=== PATIENT | male | born 1945 | race Caucasian/White ===

== ENCOUNTER 2017-12-18 07:40 | Day surgery (SDC) | payer MEDICARE, OTHER ==
[2017-12-18] MEDS ORDERED: HEPARIN 1000 UNITS/ML 10 ML INJ (09:32)
[2017-12-18] MEDS ORDERED: LIDOCAINE 1% (MPF) 30 ML INJ (09:32)
[2017-12-18 09:34] LABS: ADD MAN DIFF? NO
[2017-12-18 09:36] LABS: ABNORMAL IP MESSAGE 1; BASOPHILS % 0.5 % (0.0-2.0); EOSINOPHILS # 0.2 10^3/ul (0.0-0.5); EOSINOPHILS % 2.7 % (0.0-7.0); HEMATOCRIT 34.4 % (42.0-52.0); HEMOGLOBIN 10.8 g/dl (14.0-18.0); LYMPHOCYTES # 0.5 10^3/ul (0.8-2.9); LYMPHOCYTES % 8.4 % (15.0-51.0); MEAN CORPUSCULAR HEMOGLOBIN 31.3 pg (29.0-33.0); MEAN CORPUSCULAR HGB CONC 31.4 g/dl (32.0-37.0); MEAN CORPUSCULAR VOLUME 99.7 fl (82.0-101.0); MEAN PLATELET VOLUME 11.1 fl (7.4-10.4); MONOCYTE # 0.4 10^3/ul (0.3-0.9); MONOCYTES % 6.9 % (0.0-11.0); PLATELET COUNT 174 10^3/UL (140-415); POSITIVE DIFF @See below; RED BLOOD COUNT 3.45 10^6/ul (4.70-6.10)
[2017-12-18 09:36] LABS: WHITE BLOOD COUNT 6.2 10^3/ul (4.8-10.8)
[2017-12-18 09:57] LABS: ALANINE AMINOTRANSFERASE 22 IU/L (13-69); ALBUMIN 4.1 g/dl (3.3-4.9); ALBUMIN/GLOBULIN RATIO 1.36; ALKALINE PHOSPHATASE 198 IU/L (42-121); ANION GAP 19 (8-16); ASPARTATE AMINO TRANSFERASE 15 IU/L (15-46); BILIRUBIN,INDIRECT 0.5 mg/dl (0-1.1); BILIRUBIN,TOTAL 0.5 mg/dl (0.2-1.3); CARBON DIOXIDE 38 mmol/L (21-31); CHLORIDE 97 mmol/L (97-110); GLUCOSE 108 mg/dl (70-220); TOTAL PROTEIN 7.1 g/dl (6.1-8.1)
[2017-12-18 10:02] LABS: INR 1.06; PROTIME 13.9 Sec (11.9-14.9); PT RATIO 1.1
[2017-12-18 10:03] LABS: PARTIAL THROMBOPLASTIN TIME 33.1 Sec (25.0-35.0)
[2017-12-18 10:04] LABS: BLOOD UREA NITROGEN 78 mg/dl (7-20); CALCIUM 8.1 mg/dl (8.4-10.2); CREATININE 10.29 mg/dl (0.61-1.24); POTASSIUM 5.7 mmol/L (3.5-5.1); SODIUM 148 mmol/L (135-144)
== END 2017-12-18 10:35 | disposition home or self-care (01) ==
LOC: SDS 07:40
DX: T82.590A Other mechanical complication of surgically created arteriovenous fistula, initial encounter (principal); Y84.1 Kidney dialysis as the cause of abnormal reaction of the patient, or of later complication, without mention of misadventure at the time of the procedure; I12.0 Hypertensive chronic kidney disease with stage 5 chronic kidney disease or end stage renal disease; N18.6 End stage renal disease; Z53.9 Procedure and treatment not carried out, unspecified reason; E11.9 Type 2 diabetes mellitus without complications
CPT/HCPCS: 71045; 80053; 82962; 85025; 85610; 85730; 93005

== ENCOUNTER 2018-03-15 19:11 | Emergency (ER) | payer MEDICARE, OTHER ==
[2018-03-15 19:55] LABS: ADD MAN DIFF? NO
[2018-03-15 19:58] LABS: WHITE BLOOD COUNT 6.9 10^3/ul (4.8-10.8)
[2018-03-15 19:58] LABS: ABNORMAL IP MESSAGE 1; BASOPHILS % 0.4 % (0.0-2.0); EOSINOPHILS # 0.1 10^3/ul (0.0-0.5); EOSINOPHILS % 1.7 % (0.0-7.0); HEMATOCRIT 30.2 % (42.0-52.0); HEMOGLOBIN 9.7 g/dl (14.0-18.0); LYMPHOCYTES # 0.5 10^3/ul (0.8-2.9); LYMPHOCYTES % 7.9 % (15.0-51.0); MEAN CORPUSCULAR HEMOGLOBIN 30.9 pg (29.0-33.0); MEAN CORPUSCULAR HGB CONC 32.1 g/dl (32.0-37.0); MEAN CORPUSCULAR VOLUME 96.2 fl (82.0-101.0); MEAN PLATELET VOLUME 10.7 fl (7.4-10.4); MONOCYTE # 0.5 10^3/ul (0.3-0.9); MONOCYTES % 7.7 % (0.0-11.0); NEUTROPHIL # 5.6 10^3/ul (1.6-7.5); NEUTROPHILS % 81.9 % (39.0-77.0); PLATELET COUNT 203 10^3/UL (140-415); POSITIVE DIFF @See below; RED BLOOD COUNT 3.14 10^6/ul (4.70-6.10); RED CELL DISTRIBUTION WIDTH 14.8 % (11.5-14.5)
[2018-03-15] MEDS: ONDANSETRON (ODT) 4 MG TAB ODT (20:05)
[2018-03-15] MEDS: HYDROCODONE/APAP (10/325) TAB PO (20:06)
[2018-03-15 20:18] LABS: INR 1.02; PROTIME 13.5 Sec (11.9-14.9); PT RATIO 1.1
[2018-03-15 20:19] LABS: PARTIAL THROMBOPLASTIN TIME 33.9 Sec (25.0-35.0)
[2018-03-15 20:26] LABS: ANION GAP 21 (8-16); BLOOD UREA NITROGEN 53 mg/dl (7-20); CARBON DIOXIDE 31 mmol/L (21-31); CHLORIDE 92 mmol/L (97-110); CREATININE 8.81 mg/dl (0.61-1.24); GLUCOSE 240 mg/dl (70-220); POTASSIUM 4.8 mmol/L (3.5-5.1); SODIUM 139 mmol/L (135-144)
== END 2018-03-15 22:15 | disposition home or self-care (01) ==
LOC: E/R 19:11
DX: S00.01XA Abrasion of scalp, initial encounter (principal); I12.9 Hypertensive chronic kidney disease with stage 1 through stage 4 chronic kidney disease, or unspecified chronic kidney disease; N18.9 Chronic kidney disease, unspecified; E11.22 Type 2 diabetes mellitus with diabetic chronic kidney disease; R51 Headache; W19.XXXA Unspecified fall, initial encounter; Y92.9 Unspecified place or not applicable; Z87.891 Personal history of nicotine dependence; Z79.4 Long term (current) use of insulin; Z99.2 Dependence on renal dialysis
CPT/HCPCS: 70450; 71045; 72125; 80048; 85025; 85610; 85730; 93005; 99285-25

== ENCOUNTER 2018-06-21 04:35 | Observation (INO) | payer MEDICARE, OTHER ==
[2018-06-21 05:11] LABS: ADD MAN DIFF? NO
[2018-06-21 05:18] LABS: WHITE BLOOD COUNT 7.3 10^3/ul (4.8-10.8)
[2018-06-21 05:18] LABS: BASOPHILS % 0.4 % (0.0-2.0); EOSINOPHILS # 0.2 10^3/ul (0.0-0.5); EOSINOPHILS % 2.5 % (0.0-7.0); HEMATOCRIT 33.4 % (42.0-52.0); HEMOGLOBIN 10.7 g/dl (14.0-18.0); LYMPHOCYTES # 0.8 10^3/ul (0.8-2.9); LYMPHOCYTES % 10.4 % (15.0-51.0); MEAN CORPUSCULAR HEMOGLOBIN 32.6 pg (29.0-33.0); MEAN CORPUSCULAR VOLUME 101.8 fl (82.0-101.0); MEAN PLATELET VOLUME 10.3 fl (7.4-10.4); MONOCYTE # 0.6 10^3/ul (0.3-0.9); MONOCYTES % 8.7 % (0.0-11.0); NEUTROPHIL # 5.7 10^3/ul (1.6-7.5); NEUTROPHILS % 77.7 % (39.0-77.0); PLATELET COUNT 198 10^3/UL (140-415); RED BLOOD COUNT 3.28 10^6/ul (4.70-6.10); RED CELL DISTRIBUTION WIDTH 14.5 % (11.5-14.5)
[2018-06-21 05:43] LABS: ALANINE AMINOTRANSFERASE 13 IU/L (13-69); ALBUMIN 4.8 g/dl (3.3-4.9); ALKALINE PHOSPHATASE 207 IU/L (42-121); ANION GAP 17 (5-13); ASPARTATE AMINO TRANSFERASE 14 IU/L (15-46); BILIRUBIN,INDIRECT 0.3 mg/dl (0-1.1); BILIRUBIN,TOTAL 0.3 mg/dl (0.2-1.3); BLOOD UREA NITROGEN 89 mg/dl (7-20); CALCIUM 9.2 mg/dl (8.4-10.2); CARBON DIOXIDE 32 mmol/L (21-31); CHLORIDE 95 mmol/L (97-110); CREATININE 12.62 mg/dl (0.61-1.24); Estimated GFR 4 mL/min (>60); GLUCOSE 87 mg/dl (70-220); LIPASE 529 U/L (23-300); POTASSIUM 4.9 mmol/L (3.5-5.1); SODIUM 144 mmol/L (135-144); TOTAL PROTEIN 7.8 g/dl (6.1-8.1)
[2018-06-21] MEDS: DIPHENHYDRAMINE 25 MG CAP PO (05:55)
[2018-06-21 05:59] LABS: ADD UMIC YES; UR ASCORBIC ACID NEGATIVE (NEGATIVE); UR BILIRUBIN (Dip) NEGATIVE (NEGATIVE); UR BLOOD (Dip) NEGATIVE (NEGATIVE); UR CLARITY CLEAR (CLEAR); UR COLOR YELLOW (YELLOW); UR GLUCOSE (Dip) 3+ mg/dL (NEGATIVE); UR KETONES (Dip) NEGATIVE (NEGATIVE); UR LEUKOCYTE ESTERASE (Dip) NEGATIVE Leu/ul (NEGATIVE); UR NITRITE (Dip) NEGATIVE (NEGATIVE); UR RBC 3 /HPF (0-5); UR SPECIFIC GRAVITY (Dip) 1.011 (1.003-1.030); UR TOTAL PROTEIN (Dip) 3+ mg/dl (NEGATIVE); UR UROBILINOGEN (Dip) NEGATIVE (NEGATIVE); UR WBC 9 /HPF (0-5)
[2018-06-21] MEDS: DEXTROSE 50% 50 ML SYRINGE IV (06:55)
[2018-06-21] MEDS: DEXTROSE 5%-0.45% NACL 1,000 ML IV (08:30)
[2018-06-21] MEDS ORDERED: ONDANSETRON 4 MG INJ IV (08:30)
[2018-06-21] MEDS: hydrALAzine 20 MG INJ IV ×2 (08:41→15:11)
[2018-06-21] MEDS ORDERED: FENTAnyl 50 MCG/ML VIAL (09:52)
[2018-06-21] MEDS ORDERED: LIDOCAINE 2% (MDV) 20 ML INJ (09:52)
[2018-06-21] MEDS ORDERED: HEPARIN 1000 UNITS/NS (A-LINE) 1,000 ML (09:52)
[2018-06-21] MEDS ORDERED: MIDAZOLAM 1 MG/ML 2 ML INJ (09:52)
[2018-06-21] MEDS ORDERED: HEPARIN 1000 UNITS/ML 10 ML INJ (09:52)
[2018-06-21] MEDS ORDERED: IODIXANOL LOCM 50 ML BTL (09:52)
[2018-06-21] MEDS ORDERED: HEPARIN 1000 UNITS/ML 10 ML INJ CATHETER (10:30)
[2018-06-21 12:20] LABS: HEPATITIS B SURFACE ANTIGEN NEGATIVE (NEGATIVE)
[2018-06-21 12:23] LABS: HEPATITIS B SURFACE ANTIBODY POSITIVE (NEGATIVE)
[2018-06-21] MEDS ORDERED: GLUCOSE GEL 15 GRAM TUBE BUCCAL (12:30)
[2018-06-21] MEDS ORDERED: GLUCOSE GEL 15 GRAM TUBE PO ×2 (12:30)
[2018-06-21] MEDS ORDERED: GLUCAGON 1 MG INJ IM (12:30)
[2018-06-21] MEDS ORDERED: DEXTROSE 50% 50 ML SYRINGE IV ×2 (12:30)
[2018-06-21] MEDS: morphine 2 MG INJ IV (13:48)
[2018-06-21] MEDS ORDERED: INSULIN ASPART [NOVOLOG] 3 ML PEN SC (18:00)
[2018-06-21] MEDS ORDERED: AMLODIPINE 5 MG TAB PO (21:00)
[2018-06-22] MEDS ORDERED: ACCU-CHEK XX (02:00)
== END 2018-06-21 17:40 | disposition home or self-care (01) ==
LOC: E/R 04:35 → 2NE 05:31
DX: T82.858A Stenosis of other vascular prosthetic devices, implants and grafts, initial encounter (principal); I12.0 Hypertensive chronic kidney disease with stage 5 chronic kidney disease or end stage renal disease; E11.22 Type 2 diabetes mellitus with diabetic chronic kidney disease; N18.6 End stage renal disease; Z99.2 Dependence on renal dialysis; E78.5 Hyperlipidemia, unspecified; E11.40 Type 2 diabetes mellitus with diabetic neuropathy, unspecified; D64.9 Anemia, unspecified; Z79.4 Long term (current) use of insulin; Z87.891 Personal history of nicotine dependence; Y83.2 Surgical operation with anastomosis, bypass or graft as the cause of abnormal reaction of the patient, or of later complication, without mention of misadventure at the time of the procedure
CPT/HCPCS: 36415; 36902; 80053; 81001; 82962; 83690; 85025; 86706; 87340; 90935; 93005; 99285-25

== ENCOUNTER 2018-07-02 12:16 | Emergency (ER) | payer MEDICARE, OTHER | END 2018-07-02 14:16 | disposition home or self-care (01) | LOC: E/R 12:16 | DX: T82.49XA Other complication of vascular dialysis catheter, initial encounter (principal); R40.2142 Coma scale, eyes open, spontaneous, at arrival to emergency department; R40.2362 Coma scale, best motor response, obeys commands, at arrival to emergency department; R40.2252 Coma scale, best verbal response, oriented, at arrival to emergency department; Y82.8 Other medical devices associated with adverse incidents; Z79.4 Long term (current) use of insulin | CPT/HCPCS: 99283 ==

== ENCOUNTER 2018-07-09 08:20 | Observation (INO) | payer MEDICARE, OTHER ==
[~2018-07-09 08:20] MED LIST: CA CHLORIDE 10% 10 ML SYRINGE; LIDOCAINE 2% (SDV) 5 ML INJ; SEVOFLURANE 15 MIN
[2018-07-09 09:26] LABS: ADD MAN DIFF? NO
[2018-07-09 09:29] LABS: WHITE BLOOD COUNT 9.1 10^3/ul (4.8-10.8)
[2018-07-09 09:29] LABS: ABNORMAL IP MESSAGE 1; BASOPHILS % 0.2 % (0.0-2.0); EOSINOPHILS # 0.2 10^3/ul (0.0-0.5); EOSINOPHILS % 1.6 % (0.0-7.0); HEMATOCRIT 29.9 % (42.0-52.0); HEMOGLOBIN 9.7 g/dl (14.0-18.0); LYMPHOCYTES # 0.5 10^3/ul (0.8-2.9); LYMPHOCYTES % 5.6 % (15.0-51.0); MEAN CORPUSCULAR HEMOGLOBIN 32.4 pg (29.0-33.0); MEAN CORPUSCULAR HGB CONC 32.4 g/dl (32.0-37.0); MEAN PLATELET VOLUME 10.3 fl (7.4-10.4); MONOCYTE # 0.7 10^3/ul (0.3-0.9); MONOCYTES % 8.1 % (0.0-11.0); NEUTROPHIL # 7.6 10^3/ul (1.6-7.5); NEUTROPHILS % 84.1 % (39.0-77.0); PLATELET COUNT 208 10^3/UL (140-415); POSITIVE DIFF @See below; RED BLOOD COUNT 2.99 10^6/ul (4.70-6.10); RED CELL DISTRIBUTION WIDTH 14.8 % (11.5-14.5)
[2018-07-09 09:32] LABS: HOLD TRANSMISSIONS 1
[2018-07-09 09:47] LABS: INR 1.06; PROTIME 13.9 Sec (11.9-14.9); PT RATIO 1.1
[2018-07-09 09:54] LABS: ALANINE AMINOTRANSFERASE 14 IU/L (13-69); ALBUMIN 4.3 g/dl (3.3-4.9); ALKALINE PHOSPHATASE 171 IU/L (42-121); ANION GAP 21 (5-13); ASPARTATE AMINO TRANSFERASE 14 IU/L (15-46); BILIRUBIN,INDIRECT 0.1 mg/dl (0-1.1); BILIRUBIN,TOTAL 0.1 mg/dl (0.2-1.3); CALCIUM 8.9 mg/dl (8.4-10.2); CARBON DIOXIDE 28 mmol/L (21-31); CHLORIDE 93 mmol/L (97-110); Estimated GFR 4 mL/min (>60); GLUCOSE 145 mg/dl (70-220); SODIUM 142 mmol/L (135-144); TOTAL PROTEIN 7.6 g/dl (6.1-8.1)
[2018-07-09 09:58] LABS: BLOOD UREA NITROGEN 94 mg/dl (7-20); CREATININE 12.56 mg/dl (0.61-1.24); POTASSIUM 6.1 mmol/L (3.5-5.1)
[2018-07-09] MEDS: DEXTROSE 50% 50 ML SYRINGE IV (10:44)
[2018-07-09] MEDS: INSULIN REGULAR, HUMAN 100 UNIT/1 ML 3ML VIAL IV (10:48)
[2018-07-09] MEDS ORDERED: FENTAnyl 50 MCG/ML VIAL (11:11)
[2018-07-09] MEDS ORDERED: CEFAZOLIN 1 GM INJ (11:12)
[2018-07-09] MEDS ORDERED: PROPOFOL 20 ML (11:12)
[2018-07-09] MEDS ORDERED: MIDAZOLAM 1 MG/ML 2 ML INJ (11:13)
[2018-07-09] MEDS ORDERED: METOCLOPRAMIDE 10 MG INJ (11:13)
[2018-07-09] MEDS ORDERED: FENTAnyl 50 MCG/ML VIAL IV ×2 (12:30)
[2018-07-09] MEDS ORDERED: hydrALAzine 20 MG INJ IV (12:30)
[2018-07-09] MEDS ORDERED: ONDANSETRON 4 MG INJ IV ×2 (12:30→16:00)
[2018-07-09] MEDS ORDERED: DIPHENHYDRAMINE 50 MG INJ IV (12:30)
[2018-07-09] MEDS ORDERED: MIDAZOLAM 1 MG/ML 2 ML INJ IV (12:30)
[2018-07-09] MEDS ORDERED: HYDROmorphONE 1 MG/5 ML IV SYRINGE IV ×3 (12:30)
[2018-07-09] MEDS ORDERED: LABETALOL HCL 20MG INJ IV (12:30)
[2018-07-09] MEDS ORDERED: ROPIVACAINE 0.5 % 30 ML VIAL (12:36)
[2018-07-09] MEDS ORDERED: GELATIN SIZE 100 SPONGE (12:41)
[2018-07-09] MEDS ORDERED: THROMBIN 5000 UNIT VIAL (12:41)
[2018-07-09] MEDS ORDERED: LIDOCAINE 1% (MPF) 30 ML INJ (12:41)
[2018-07-09] MEDS ORDERED: HEPARIN 1000 UNITS/ML 10 ML INJ (12:42)
[2018-07-09 13:02] LABS: POTASSIUM 5.9 mmol/L (3.5-5.1)
[2018-07-09] MEDS: LIDOCAINE 1% (MPF) 30 ML INJ INJ (14:32)
[2018-07-09] MEDS: HEPARIN 1000 UNITS/ML 10 ML INJ INJ (14:32)
[2018-07-09] MEDS: IPRATROPIUM (NEB) 0.5 MG/2.5 ML AMP HHN (15:11)
[2018-07-09] MEDS: LEVALBUTEROL (NEB) 1.25 MG/0.5 ML AMP HHN (15:11)
[2018-07-09] MEDS: HALOPERIDOL 5 MG INJ IV (15:15)
[2018-07-09] MEDS ORDERED: DOCUSATE SODIUM 100 MG CAP PO (16:00)
[2018-07-09] MEDS ORDERED: ACETAMINOPHEN 325 MG TAB PO (16:00)
[2018-07-09] MEDS ORDERED: NACL 0.9% 3 ML SYG IV (16:00)
[2018-07-09] MEDS ORDERED: GLUCAGON 1 MG INJ IM (17:00)
[2018-07-09] MEDS ORDERED: GLUCOSE GEL 15 GRAM TUBE PO ×2 (17:00)
[2018-07-09] MEDS ORDERED: DEXTROSE 50% 50 ML SYRINGE IV ×2 (17:00)
[2018-07-09] MEDS ORDERED: GLUCOSE GEL 15 GRAM TUBE BUCCAL (17:00)
[2018-07-09] MEDS: ACCU-CHEK XX ×3 (17:30→21:48)
[2018-07-09] MEDS ORDERED: GLIMEPIRIDE 4 MG TAB PO (18:00)
[2018-07-09] MEDS: INSULIN ASPART [NOVOLOG] 3 ML PEN SC ×2 (18:22→21:00)
[2018-07-09 19:21] LABS: HEPATITIS B SURFACE ANTIGEN NEGATIVE (NEGATIVE)
[2018-07-09] MEDS: traMADol 50 MG TAB PO (20:55)
[2018-07-09] MEDS: BRIMONIDINE 0.2%-TIMOLOL 0.5% 5ML OPH BOTH EYES (21:00)
[2018-07-10] MEDS: traMADol 50 MG TAB PO (03:49)
[2018-07-10] MEDS ORDERED: ZOLPIDEM 5 MG TAB PO (05:00)
[2018-07-10 06:09] LABS: ADD MAN DIFF? NO
[2018-07-10 06:23] LABS: ABNORMAL IP MESSAGE 1; BASOPHILS % 0.3 % (0.0-2.0); EOSINOPHILS # 0.1 10^3/ul (0.0-0.5); EOSINOPHILS % 1.4 % (0.0-7.0); HEMATOCRIT 30.5 % (42.0-52.0); HEMOGLOBIN 9.8 g/dl (14.0-18.0); LYMPHOCYTES # 0.5 10^3/ul (0.8-2.9); LYMPHOCYTES % 5.4 % (15.0-51.0); MEAN CORPUSCULAR HEMOGLOBIN 32.6 pg (29.0-33.0); MEAN CORPUSCULAR HGB CONC 32.1 g/dl (32.0-37.0); MEAN CORPUSCULAR VOLUME 101.3 fl (82.0-101.0); MEAN PLATELET VOLUME 10.7 fl (7.4-10.4); MONOCYTE # 0.7 10^3/ul (0.3-0.9); MONOCYTES % 8.2 % (0.0-11.0); NEUTROPHIL # 7.2 10^3/ul (1.6-7.5); PLATELET COUNT 224 10^3/UL (140-415); POSITIVE DIFF @See below; RED BLOOD COUNT 3.01 10^6/ul (4.70-6.10); RED CELL DISTRIBUTION WIDTH 15.2 % (11.5-14.5)
[2018-07-10 06:23] LABS: WHITE BLOOD COUNT 8.6 10^3/ul (4.8-10.8)
[2018-07-10 06:47] LABS: ANION GAP 16 (5-13); BLOOD UREA NITROGEN 52 mg/dl (7-20); CALCIUM 9.5 mg/dl (8.4-10.2); CARBON DIOXIDE 29 mmol/L (21-31); CHLORIDE 96 mmol/L (97-110); Estimated GFR 6 mL/min (>60); GLUCOSE 151 mg/dl (70-220); MAGNESIUM 2.5 mg/dl (1.7-2.5); PHOSPHORUS 7.3 mg/dl (2.5-4.9); POTASSIUM 5.3 mmol/L (3.5-5.1); SODIUM 141 mmol/L (135-144)
[2018-07-10] MEDS: ACCU-CHEK XX (07:00)
[2018-07-10] MEDS: INSULIN ASPART [NOVOLOG] 3 ML PEN SC (07:47)
[2018-07-10] MEDS: DULOXETINE 20 MG CAP DR PO (08:39)
[2018-07-10] MEDS: NA POLYST SULFON 15 GM/60 ML BTL PO (09:00)
== END 2018-07-10 09:43 | disposition left against medical advice (07) ==
LOC: SDS 08:20 → REC 15:34 → 6WM 16:42
DX: T82.838A Hemorrhage due to vascular prosthetic devices, implants and grafts, initial encounter (principal); Y84.1 Kidney dialysis as the cause of abnormal reaction of the patient, or of later complication, without mention of misadventure at the time of the procedure; E11.9 Type 2 diabetes mellitus without complications; I13.2 Hypertensive heart and chronic kidney disease with heart failure and with stage 5 chronic kidney disease, or end stage renal disease; I50.9 Heart failure, unspecified; N18.6 End stage renal disease; E78.5 Hyperlipidemia, unspecified; J44.9 Chronic obstructive pulmonary disease, unspecified; F41.8 Other specified anxiety disorders; Z79.4 Long term (current) use of insulin
CPT/HCPCS: 35903; 71045; 80048; 80053; 82962; 83735; 84100; 84132; 85025; 85610; 85730; 87340; 88304; 90935; 94664; 99217; G0378

== ENCOUNTER 2018-07-14 13:10 | Emergency (ER) | payer MEDICARE, OTHER ==
[2018-07-14 13:58] LABS: ADD MAN DIFF? NO
[2018-07-14 14:16] LABS: WHITE BLOOD COUNT 8.9 10^3/ul (4.8-10.8)
[2018-07-14 14:16] LABS: ABNORMAL IP MESSAGE 1; BASOPHILS % 0.3 % (0.0-2.0); EOSINOPHILS # 0.1 10^3/ul (0.0-0.5); EOSINOPHILS % 1.3 % (0.0-7.0); HEMATOCRIT 27.2 % (42.0-52.0); HEMOGLOBIN 9.1 g/dl (14.0-18.0); LYMPHOCYTES # 0.4 10^3/ul (0.8-2.9); LYMPHOCYTES % 4.6 % (15.0-51.0); MEAN CORPUSCULAR HEMOGLOBIN 32.7 pg (29.0-33.0); MEAN CORPUSCULAR HGB CONC 33.5 g/dl (32.0-37.0); MEAN CORPUSCULAR VOLUME 97.8 fl (82.0-101.0); MEAN PLATELET VOLUME 10.6 fl (7.4-10.4); MONOCYTE # 0.7 10^3/ul (0.3-0.9); MONOCYTES % 7.4 % (0.0-11.0); NEUTROPHIL # 7.6 10^3/ul (1.6-7.5); NEUTROPHILS % 85.7 % (39.0-77.0); PLATELET COUNT 220 10^3/UL (140-415); POSITIVE DIFF @See below; RED BLOOD COUNT 2.78 10^6/ul (4.70-6.10); RED CELL DISTRIBUTION WIDTH 14.3 % (11.5-14.5)
[2018-07-14 14:35] LABS: ANION GAP 16 (5-13); BLOOD UREA NITROGEN 55 mg/dl (7-20); CARBON DIOXIDE 32 mmol/L (21-31); CHLORIDE 89 mmol/L (97-110); Estimated GFR 7 mL/min (>60); GLUCOSE 197 mg/dl (70-220); POTASSIUM 4.5 mmol/L (3.5-5.1); SODIUM 137 mmol/L (135-144)
[2018-07-14 14:53] LABS: TROPONIN-I 0.129 ng/ml (0.000-0.120)
[2018-07-14] MEDS ORDERED: ASPIRIN 81 MG TAB PO (15:00)
[2018-07-14] MEDS ORDERED: PHENYLephrine 0.5% 15 ML NAS SPRAY NASAL (15:00)
== END 2018-07-14 15:40 | disposition left against medical advice (07) ==
LOC: E/R 13:10
DX: R53.1 Weakness (principal); R79.89 Other specified abnormal findings of blood chemistry; I12.0 Hypertensive chronic kidney disease with stage 5 chronic kidney disease or end stage renal disease; N18.6 End stage renal disease; E11.22 Type 2 diabetes mellitus with diabetic chronic kidney disease; Z79.4 Long term (current) use of insulin; Z99.2 Dependence on renal dialysis
CPT/HCPCS: 71045; 80048; 84484; 85025; 93005; 99285-25

== ENCOUNTER 2018-07-15 18:45 | Inpatient (IN) | payer MEDICARE, OTHER ==
[2018-07-15 19:33] LABS: ADD MAN DIFF? NO
[2018-07-15 19:36] LABS: ABNORMAL IP MESSAGE 1; BASOPHILS % 0.6 % (0.0-2.0); EOSINOPHILS # 0.1 10^3/ul (0.0-0.5); EOSINOPHILS % 1.7 % (0.0-7.0); HEMATOCRIT 27.8 % (42.0-52.0); HEMOGLOBIN 9.1 g/dl (14.0-18.0); LYMPHOCYTES # 0.5 10^3/ul (0.8-2.9); LYMPHOCYTES % 7.6 % (15.0-51.0); MEAN CORPUSCULAR HEMOGLOBIN 32.5 pg (29.0-33.0); MEAN CORPUSCULAR HGB CONC 32.7 g/dl (32.0-37.0); MEAN CORPUSCULAR VOLUME 99.3 fl (82.0-101.0); MEAN PLATELET VOLUME 9.9 fl (7.4-10.4); MONOCYTE # 0.8 10^3/ul (0.3-0.9); MONOCYTES % 10.9 % (0.0-11.0); NEUTROPHIL # 5.5 10^3/ul (1.6-7.5); NEUTROPHILS % 78.5 % (39.0-77.0); PLATELET COUNT 207 10^3/UL (140-415); POSITIVE DIFF @See below; RED CELL DISTRIBUTION WIDTH 14.5 % (11.5-14.5)
[2018-07-15 19:59] LABS: ANION GAP 15 (5-13); BLOOD UREA NITROGEN 88 mg/dl (7-20); CALCIUM 8.6 mg/dl (8.4-10.2); CARBON DIOXIDE 31 mmol/L (21-31); CHLORIDE 90 mmol/L (97-110); CREATININE 11.18 mg/dl (0.61-1.24); Estimated GFR 5 mL/min (>60); GLUCOSE 146 mg/dl (70-220); SODIUM 136 mmol/L (135-144)
[2018-07-15 20:02] LABS: POTASSIUM 6.3 mmol/L (3.5-5.1)
[2018-07-15 20:14] LABS: TROPONIN-I 0.138 ng/ml (0.000-0.120)
[2018-07-15] MEDS: ASPIRIN 325 MG TAB PO (20:57)
[2018-07-15] MEDS: NA POLYST SULFON 15 GM/60 ML BTL PO (20:58)
[2018-07-16] MEDS ORDERED: ACETAMINOPHEN 650 MG SUPP PR
[2018-07-16] MEDS ORDERED: ZOLPIDEM 5 MG TAB PO
[2018-07-16] MEDS ORDERED: NACL 0.9% 3 ML SYG IV
[2018-07-16] MEDS ORDERED: DOCUSATE SODIUM 100 MG CAP PO
[2018-07-16] MEDS ORDERED: ONDANSETRON 4 MG INJ IV
[2018-07-16] MEDS ORDERED: BISACODYL (EC) 5 MG TAB PO
[2018-07-16] MEDS ORDERED: ACETAMINOPHEN 325 MG TAB PO
[2018-07-16] MEDS ORDERED: traMADol 50 MG TAB PO
[2018-07-16] MEDS ORDERED: MAGNESIUM HYDROXIDE 30ML CUP PO
[2018-07-16] MEDS ORDERED: GLUCAGON 1 MG INJ IM (00:30)
[2018-07-16] MEDS ORDERED: DEXTROSE 50% 50 ML SYRINGE IV ×2 (00:30)
[2018-07-16] MEDS ORDERED: GLUCOSE GEL 15 GRAM TUBE PO ×2 (00:30)
[2018-07-16] MEDS ORDERED: GLUCOSE GEL 15 GRAM TUBE BUCCAL (00:30)
[2018-07-16 01:05] LABS: CREATINE KINASE 156 IU/L (23-200)
[2018-07-16 01:18] LABS: CK INDEX 1.3; CK-MB 1.96 ng/ml (0.0-2.4)
[2018-07-16 01:22] LABS: TROPONIN-I 0.142 ng/ml (0.000-0.120)
[2018-07-16] MEDS: ACCU-CHEK XX (01:29)
[2018-07-16 05:44] LABS: CREATINE KINASE 141 IU/L (23-200)
[2018-07-16 05:49] LABS: CHOLESTEROL 105 mg/dl (100-200)
[2018-07-16 05:49] LABS: CHOL/HDL RATIO 4.5 RATIO; HDL CHOLESTEROL 23 mg/dl (31-75); LDL CHOLESTEROL,CALCULATED 55 mg/dl; TRIGLYCERIDES 137 mg/dl (0-149)
[2018-07-16 05:57] LABS: CK INDEX 1.2; CK-MB 1.65 ng/ml (0.0-2.4)
[2018-07-16 05:58] LABS: HEMOGLOBIN A1C 6.9 % (0-5.9)
[2018-07-16 06:16] LABS: HEPATITIS B SURFACE ANTIGEN NEGATIVE (NEGATIVE)
[2018-07-16 06:35] LABS: HEPATITIS B SURFACE ANTIBODY POSITIVE (NEGATIVE)
[2018-07-16] MEDS: HEPARIN 1000 UNITS/ML 10 ML INJ CATHETER (07:27)
[2018-07-16] MEDS: INSULIN ASPART [NOVOLOG] 3 ML PEN SC ×4 (07:35→20:59)
[2018-07-16] MEDS: FAMOTIDINE 20 MG TAB PO (08:44)
[2018-07-16] MEDS: ASPIRIN (EC) 81 MG TAB PO (08:44)
[2018-07-16] MEDS: BRIMONIDINE 0.2%-TIMOLOL 0.5% 5ML OPH BOTH EYES ×2 (08:44→21:00)
[2018-07-16] MEDS: DULOXETINE 20 MG CAP DR PO (08:44)
[2018-07-16] MEDS: ENOXAPARIN 30 MG/0.3 ML SYG SC (08:46)
[2018-07-16 08:49] LABS: ADD MAN DIFF? NO
[2018-07-16 08:51] LABS: WHITE BLOOD COUNT 4.8 10^3/ul (4.8-10.8)
[2018-07-16 08:51] LABS: ABNORMAL IP MESSAGE 1; BASOPHILS % 0.8 % (0.0-2.0); EOSINOPHILS # 0.1 10^3/ul (0.0-0.5); EOSINOPHILS % 2.5 % (0.0-7.0); HEMATOCRIT 28.6 % (42.0-52.0); HEMOGLOBIN 9.6 g/dl (14.0-18.0); LYMPHOCYTES # 0.4 10^3/ul (0.8-2.9); LYMPHOCYTES % 7.9 % (15.0-51.0); MEAN CORPUSCULAR HEMOGLOBIN 33.2 pg (29.0-33.0); MEAN CORPUSCULAR HGB CONC 33.6 g/dl (32.0-37.0); MEAN PLATELET VOLUME 10.3 fl (7.4-10.4); MONOCYTE # 0.6 10^3/ul (0.3-0.9); MONOCYTES % 13.2 % (0.0-11.0); NEUTROPHIL # 3.6 10^3/ul (1.6-7.5); NEUTROPHILS % 74.8 % (39.0-77.0); PLATELET COUNT 225 10^3/UL (140-415); POSITIVE DIFF @See below; RED BLOOD COUNT 2.89 10^6/ul (4.70-6.10); RED CELL DISTRIBUTION WIDTH 14.5 % (11.5-14.5)
[2018-07-16 09:10] LABS: ANION GAP 16 (5-13); BLOOD UREA NITROGEN 48 mg/dl (7-20); CALCIUM 10.2 mg/dl (8.4-10.2); CARBON DIOXIDE 29 mmol/L (21-31); CHLORIDE 94 mmol/L (97-110); CREATININE 7.44 mg/dl (0.61-1.24); Estimated GFR 7 mL/min (>60); GLUCOSE 137 mg/dl (70-220); POTASSIUM 4.1 mmol/L (3.5-5.1); SODIUM 139 mmol/L (135-144)
[2018-07-16] MEDS: POLYSACCHARIDE IRON COMPLEX CAP PO ×2 (14:41→20:58)
[2018-07-16] MEDS ORDERED: NITROGLYCERIN (SL) 0.4 MG TAB SL (19:30)
[2018-07-17] MEDS: ACCU-CHEK XX (02:00)
[2018-07-17 06:01] LABS: ADD MAN DIFF? NO
[2018-07-17 06:49] LABS: CK-MB 1.47 ng/ml (0.0-2.4); TROPONIN-I 0.085 ng/ml (0.000-0.120)
[2018-07-17 06:52] LABS: CHOLESTEROL 114 mg/dl (100-200)
[2018-07-17 06:52] LABS: CHOL/HDL RATIO 3.9 RATIO; CK INDEX 1.8; CREATINE KINASE 84 IU/L (23-200); HDL CHOLESTEROL 29 mg/dl (31-75); LDL CHOLESTEROL,CALCULATED 55 mg/dl; TRIGLYCERIDES 150 mg/dl (0-149)
[2018-07-17 06:57] LABS: ANION GAP 18 (5-13); BLOOD UREA NITROGEN 73 mg/dl (7-20); CALCIUM 9.2 mg/dl (8.4-10.2); CARBON DIOXIDE 26 mmol/L (21-31); CHLORIDE 94 mmol/L (97-110); CREATININE 10.23 mg/dl (0.61-1.24); Estimated GFR 5 mL/min (>60); GLUCOSE 157 mg/dl (70-220); POTASSIUM 4.7 mmol/L (3.5-5.1); SODIUM 138 mmol/L (135-144)
[2018-07-17 06:59] LABS: BASOPHILS % 0.6 % (0.0-2.0); EOSINOPHILS # 0.2 10^3/ul (0.0-0.5); EOSINOPHILS % 3.4 % (0.0-7.0); HEMATOCRIT 28.5 % (42.0-52.0); HEMOGLOBIN 9.2 g/dl (14.0-18.0); LYMPHOCYTES # 0.6 10^3/ul (0.8-2.9); LYMPHOCYTES % 12.3 % (15.0-51.0); MEAN CORPUSCULAR HEMOGLOBIN 32.5 pg (29.0-33.0); MEAN CORPUSCULAR HGB CONC 32.3 g/dl (32.0-37.0); MEAN CORPUSCULAR VOLUME 100.7 fl (82.0-101.0); MEAN PLATELET VOLUME 10.9 fl (7.4-10.4); MONOCYTE # 0.7 10^3/ul (0.3-0.9); MONOCYTES % 14.3 % (0.0-11.0); NEUTROPHIL # 3.4 10^3/ul (1.6-7.5); NEUTROPHILS % 68.4 % (39.0-77.0); PLATELET COUNT 235 10^3/UL (140-415); RED BLOOD COUNT 2.83 10^6/ul (4.70-6.10); RED CELL DISTRIBUTION WIDTH 14.4 % (11.5-14.5)
[2018-07-17] MEDS: INSULIN ASPART [NOVOLOG] 3 ML PEN SC ×3 (07:53→17:23)
[2018-07-17] MEDS: BRIMONIDINE 0.2%-TIMOLOL 0.5% 5ML OPH BOTH EYES (08:40)
[2018-07-17] MEDS: DULOXETINE 20 MG CAP DR PO (08:40)
[2018-07-17] MEDS: ASPIRIN (EC) 81 MG TAB PO (08:41)
[2018-07-17] MEDS: FAMOTIDINE 20 MG TAB PO (08:41)
[2018-07-17] MEDS: POLYSACCHARIDE IRON COMPLEX CAP PO (08:41)
[2018-07-17] MEDS: REGADENOSON 0.4 MG/5 ML SYG (13:38)
[2018-07-17] MEDS: ENOXAPARIN 30 MG/0.3 ML SYG SC (15:52)
== END 2018-07-17 18:16 | disposition home or self-care (01) | DRG 640 ==
LOC: 6WM 07-16 08:25 → E/R 18:45 → ICU 07-16 08:46 → 6WM 07-16 09:09 → ICU 23:39
PROC: 5A1D70Z Performance of Urinary Filtration, Intermittent, Less than 6 Hours Per Day (ICD-10-PCS; principal; 2018-07-16)
DX: E87.5 Hyperkalemia (principal); N18.6 End stage renal disease; B18.1 Chronic viral hepatitis B without delta-agent; I13.2 Hypertensive heart and chronic kidney disease with heart failure and with stage 5 chronic kidney disease, or end stage renal disease; I50.9 Heart failure, unspecified; R74.8 Abnormal levels of other serum enzymes; E11.22 Type 2 diabetes mellitus with diabetic chronic kidney disease; E66.9 Obesity, unspecified; Z68.32 Body mass index [BMI] 32.0-32.9, adult; G47.00 Insomnia, unspecified; R26.2 Difficulty in walking, not elsewhere classified; Z99.2 Dependence on renal dialysis; D63.8 Anemia in other chronic diseases classified elsewhere; Z79.4 Long term (current) use of insulin
CPT/HCPCS: 36415; 71045; 78452; 80048; 80061; 82550; 82553; 82962; 83036; 84484; 85025; 86706; 87081; 87340; 90935; 93005; 93017; 93306; 99285-25

== ENCOUNTER 2019-03-12 19:15 | Emergency (ER) | payer MEDICARE, OTHER | END 2019-03-12 22:06 | disposition home or self-care (01) | LOC: E/R 19:15 | DX: T82.838A Hemorrhage due to vascular prosthetic devices, implants and grafts, initial encounter (principal); I12.0 Hypertensive chronic kidney disease with stage 5 chronic kidney disease or end stage renal disease; N18.6 End stage renal disease; Y82.8 Other medical devices associated with adverse incidents; Z79.82 Long term (current) use of aspirin; Z79.84 Long term (current) use of oral hypoglycemic drugs; Z99.2 Dependence on renal dialysis | CPT/HCPCS: 82962; 99282 ==

== ENCOUNTER 2019-03-29 14:26 | Emergency (ER) | payer MEDICARE, OTHER ==
[2019-03-29 15:27] LABS: ADD MAN DIFF? NO
[2019-03-29 15:33] LABS: ABNORMAL IP MESSAGE 1; BASOPHILS % 0.3 % (0.0-2.0); EOSINOPHILS # 0.2 10^3/ul (0.0-0.5); EOSINOPHILS % 3.6 % (0.0-7.0); HEMOGLOBIN 10.2 g/dl (14.0-18.0); LYMPHOCYTES # 0.5 10^3/ul (0.8-2.9); LYMPHOCYTES % 9.2 % (15.0-51.0); MEAN CORPUSCULAR HEMOGLOBIN 32.2 pg (29.0-33.0); MEAN CORPUSCULAR HGB CONC 31.9 g/dl (32.0-37.0); MEAN CORPUSCULAR VOLUME 100.9 fl (82.0-101.0); MEAN PLATELET VOLUME 10.2 fl (7.4-10.4); MONOCYTE # 0.5 10^3/ul (0.3-0.9); MONOCYTES % 8.1 % (0.0-11.0); NEUTROPHIL # 4.6 10^3/ul (1.6-7.5); NEUTROPHILS % 78.3 % (39.0-77.0); PLATELET COUNT 156 10^3/UL (140-415); POSITIVE DIFF @See below; RED BLOOD COUNT 3.17 10^6/ul (4.70-6.10); RED CELL DISTRIBUTION WIDTH 16.1 % (11.5-14.5)
[2019-03-29 15:33] LABS: WHITE BLOOD COUNT 5.9 10^3/ul (4.8-10.8)
[2019-03-29 15:53] LABS: ANION GAP 16 (5-13); BLOOD UREA NITROGEN 63 mg/dl (7-20); CALCIUM 7.8 mg/dl (8.4-10.2); CARBON DIOXIDE 28 mmol/L (21-31); CHLORIDE 95 mmol/L (97-110); CREATINE KINASE 148 IU/L (23-200); CREATININE 9.99 mg/dl (0.61-1.24); GLUCOSE 169 mg/dl (70-220); SODIUM 139 mmol/L (135-144)
[2019-03-29 16:04] LABS: CK INDEX 1.9; TROPONIN-I 0.024 ng/ml (0.000-0.120)
[2019-03-29 16:06] LABS: CK-MB 2.87 ng/ml (0.0-2.4)
[2019-03-29 18:21] LABS: TROPONIN-I 0.024 ng/ml (0.000-0.120)
== END 2019-03-29 19:21 | disposition home or self-care (01) ==
LOC: E/R 14:26
DX: D64.9 Anemia, unspecified (principal); R94.31 Abnormal electrocardiogram [ECG] [EKG]; I12.0 Hypertensive chronic kidney disease with stage 5 chronic kidney disease or end stage renal disease; N18.6 End stage renal disease; E11.22 Type 2 diabetes mellitus with diabetic chronic kidney disease; Z99.2 Dependence on renal dialysis; Z79.82 Long term (current) use of aspirin; Z79.4 Long term (current) use of insulin
CPT/HCPCS: 71045; 80048; 82550; 82553; 84484; 85025; 93005; 99285-25